=== PATIENT | female | born 1945 | race Two or more races ===

== ENCOUNTER 2019-08-26 | Inpatient (IN) | payer MEDICARE ==
[2019-08-26] VITALS (15 sets, daily range): BP systolic 101–153; BP diastolic 44–71
[~2019-08-26] VITALS: Ht 149.9 cm; Wt 76.9 kg
[~2019-08-26] MED LIST: CARV6.253 PO; GLIM4TAB7 PO; LEVO100T9 PO; METF-950 PO; METH1TAB32 PO; SIMV10TA98 PO
[2019-08-26] MEDS ORDERED: amiodarone/D5 360MG/200ML BAG 200 ML IV ONE ×2 (00:15→11:40)
[2019-08-26 00:42] LABS: BASOPHILS % (AUTO) 0.2 % (0-1); EOSINOPHILS % (AUTO) 0 % (0-6); HEMATOCRIT 34.9 % (35.0-45.0); HEMOGLOBIN 11.1 g/dl (12.0-16.0); LYMPHOCYTES # (AUTO) 0.8 X10'3 (1.1-4.8); LYMPHOCYTES % (AUTO) 7.9 % (21-51); MEAN CORPUSCULAR HEMOGLOBIN 28.5 PG (27.0-31.0); MEAN CORPUSCULAR HGB CONC 31.9 g/dL (33.0-36.5); MEAN CORPUSCULAR VOLUME 89.3 FL (78-98); MEAN PLATELET VOLUME 7.9 FL (7.4-10.4); MONOCYTES # (AUTO) 0.9 X10'3 (0-0.9); MONOCYTES % (AUTO) 8.9 % (2-12); NEUTROPHILS # (AUTO) 8.3 X10'3 (1.8-7.7); PLATELET COUNT 369 X10'3 (140-440); RED BLOOD COUNT 3.91 X10'6 (4.20-5.60); RED CELL DISTRIBUTION WIDTH 15.2 % (11.5-14.5)
[2019-08-26 01:01] LABS: ALANINE AMINOTRANSFERASE 729 U/L (12-78); ALBUMIN/GLOBULIN RATIO 0.8 (1.1-1.5); ALKALINE PHOSPHATASE 180 IU/L (46-116); ANION GAP 10 (8-16); BILIRUBIN,TOTAL 0.2 MG/DL (0.1-1.0); BLOOD UREA NITROGEN 31 MG/DL (7-18); BUN/CREATININE RATIO 21.2 (6.6-38.0); CALCIUM 8.9 MG/DL (8.5-10.1); CHLORIDE 105 MMOL/L (99-107); CREATININE 1.46 MG/DL (0.40-0.90); GLUCOSE 415 MG/DL (70-104); POTASSIUM 5.6 MMOL/L (3.5-5.1); SODIUM 136 MMOL/L (135-145); TOTAL CARBON DIOXIDE 21.2 MMOL/L (24-32); TOTAL PROTEIN 6.9 G/DL (6.4-8.2); eGFR 35 ML/MIN
[2019-08-26 01:02] LABS: ASPARTATE AMINO TRANSFERASE 1092 U/L (10-37)
--- NOTE | 2019-08-26 01:13 | NUR ---
ANNA Schmitz with patient now.
--- NOTE | 2019-08-26 01:17 | NUR ---
spoke to daughter and received info regarding collapse. According to daughter, they achieved Rosc after 10-15 min of cpr
--- NOTE | 2019-08-26 01:38 | NUR ---
field start I/O was DC'd due to discomfort of patient
[2019-08-26] MEDS ORDERED: amiodarone/D5 360MG/200ML BAG 200 ML IV SCH (01:57)
[2019-08-26] MEDS ORDERED: acetaminophen 650mg rectal suppository RC PRN (02:00)
[2019-08-26] MEDS ORDERED: acetaminophen 325mg tablet PO PRN ×2 (02:00)
[2019-08-26] MEDS ORDERED: ondansetron/PF 4mg/2ml inj IV PRN (02:00)
[2019-08-26] MEDS ORDERED: morphine 2 MG/ML inj. syringe IV PRN (02:00)
[2019-08-26] MEDS ORDERED: MESSAGE TO PHARMACY PO ONE (02:25)
[2019-08-26] MEDS ORDERED: dextrose 50%-water 50ml dispensing syringe IV PRN ×2 (02:25)
[2019-08-26] MEDS ORDERED: glucagon, human recombinant 1mg kit SUBCUT PRN (02:25)
[2019-08-26] MEDS ORDERED: dextrose ORAL solution 15 GM/59 ML bottle PO PRN ×2 (02:25)
[2019-08-26 02:28] LABS: PARTIAL THROMBOPLASTIN TIME 29 SECONDS (22-32)
[2019-08-26 02:37] LABS: CHOL/HDL RATIO 2.3 (0.00-4.99); CHOLESTEROL 129 MG/DL (0-200); HDL CHOLESTEROL 57 MG/DL (35-60); LDL CHOLESTEROL 47 MG/DL (50-100); MAGNESIUM 2.4 MG/DL (1.5-2.4); PHOSPHORUS 3.6 MG/DL (2.3-4.5); TRIGLYCERIDES 105 MG/DL (20-135)
--- NOTE | 2019-08-26 02:44 | NUR ---
Called report to CHARITO Neal in CICU
--- NOTE | 2019-08-26 02:50 | NUR ---
Received patient in room CICU 2009 transported from ER via gurney. I have received report from CHARITO Ann and had the opportunity to ask questions and assume patient care.
[2019-08-26] MEDS: morphine 4 MG/ML inj SYRINge IV PRN ×2 (02:58→07:46)
[2019-08-26] MEDS ORDERED: HYDROmorphone inj. 0.5 MG/0.5 ML DISP.SYRIN IV ONE (03:55)
[2019-08-26] MEDS: insulin Lispro (HumaLOG) vial - multi-dose SQ SCH ×3 (04:07→21:41)
[2019-08-26 05:10] LABS: CLARITY,URINE SLIGHTLY CLOUDY (Clear); COLOR,URINE YELLOW (Yellow); GLUCOSE, URINE 500 mg/dl (Neg); KETONES,URINE NEGATIVE (Neg); LEUKOCYTE ESTERASE ,URINE NEGATIVE (Neg); NITRITES, URINE NEGATIVE (Neg); OCCULT BLOOD,URINE TRACE-INTACT (Neg); PROTEIN,URINE 100 mg/dl (Neg); UROBILINOGEN,URINE 0.2 E.U/dL (0.2-1.0)
[2019-08-26 05:44] LABS: UA COLLECTION TYPE NON-SPECIFIED
[2019-08-26 05:47] LABS: RBC,URINE 0-2 /HPF (0-2)
[2019-08-26 05:48] LABS: BACTERIA,URINE FEW /HPF (Neg); CELLULAR CAST 0-4 /LPF (NEGATIVE); FINE GRANULAR CAST 0-3 /LPF (NEGATIVE); MUCUS STRANDS NONE SEEN /LPF (Neg); SQUAMOUS EPITHELIAL CELL,UR FEW /LPF (FEW)
[2019-08-26 07:05] LABS: ALANINE AMINOTRANSFERASE 653 U/L (12-78); ALBUMIN 3.2 G/DL (3.4-5.0); ALBUMIN/GLOBULIN RATIO 0.8 (1.1-1.5); ALKALINE PHOSPHATASE 173 IU/L (46-116); ANION GAP 8 (8-16); ASPARTATE AMINO TRANSFERASE 617 U/L (10-37); BILIRUBIN,TOTAL 0.2 MG/DL (0.1-1.0); BLOOD UREA NITROGEN 30 MG/DL (7-18); BUN/CREATININE RATIO 23.4 (6.6-38.0); CALCIUM 9.3 MG/DL (8.5-10.1); CHLORIDE 106 MMOL/L (99-107); CREATININE 1.28 MG/DL (0.40-0.90); GLUCOSE 275 MG/DL (70-104); POTASSIUM 5.5 MMOL/L (3.5-5.1); SODIUM 137 MMOL/L (135-145); TOTAL CARBON DIOXIDE 22.8 MMOL/L (24-32); TOTAL PROTEIN 7.2 G/DL (6.4-8.2); eGFR 41 ML/MIN
[2019-08-26] MEDS ORDERED: rocuronium 10mg/ml inj IV ONE ×2 (08:00→21:20)
[2019-08-26] MEDS: heparin, porcine 5000 units/ml vial SQ SCH ×2 (08:00→21:30)
[2019-08-26] MEDS ORDERED: sod chloride 0.9% 10ml flush syringe IV ONE (08:00)
[2019-08-26] MEDS: atorvastatin 10mg tablet PO SCH (08:00)
[2019-08-26] MEDS ORDERED: etomidate 2mg/ml inj. ONE (08:00)
[2019-08-26] MEDS ORDERED: ceFAZolin inj. 2,000 MG in dextrose 5%-water 50ml 50 ML IV ONE (08:05)
[2019-08-26] MEDS ORDERED: methylPREDNISolone sod succ 125mg/2ml vial IV ONE ×2 (08:05→16:00)
[2019-08-26] MEDS ORDERED: diphenhydrAMINE 50 mg/ml inj IV ONE ×2 (08:05→16:00)
[2019-08-26] MEDS: pantoprazole 40 MG vial IV SCH (08:43)
[2019-08-26] MEDS: carvedilol 6.25mg tablet PO SCH ×2 (08:43→21:31)
[2019-08-26] MEDS: docusate sod 100mg capsule PO SCH ×2 (08:43→21:30)
[2019-08-26] MEDS: MEROPENEM 1GM/NS 50ML IVPB 50 ML IV SCH ×2 (08:45→18:37)
[2019-08-26] MEDS ORDERED: BACDS PO (11:48)
[2019-08-26] MEDS ORDERED: METF-436 PO (11:50)
--- NOTE | 2019-08-26 12:15 | NUR ---
Increased freq pvc's, Dr Lugo aware, mg level ordered. Amiodarone infusing. No further orders
--- NOTE | 2019-08-26 15:00 | NUR ---
patient prepped for dental laboratory worker and for defibrillator. Given bed bath and harden cath care.
[2019-08-26 15:27] LABS: MAGNESIUM 2.1 MG/DL (1.5-2.4)
[2019-08-26] MEDS ORDERED: ceFAZolin 1000mg inj ONE (15:38)
[2019-08-26] MEDS ORDERED: LIDOcaine 1% W/epiNEPHrine 1:100,000 20ml vial ONE (15:39)
[2019-08-26] MEDS ORDERED: fentaNYL/PF 50MCG/1 ML 2ML syringe ONE (16:02)
[2019-08-26] MEDS ORDERED: midazolam 2 mg/2 ml injection ONE ×4 (16:02→19:41)
[2019-08-26] MEDS ORDERED: LIDOcaine 2% (20 mg/ml) 5ml cardiac syringe ONE (16:50)
[2019-08-26] MEDS ORDERED: LIDOcaine 2 gm/250ml D5W 250 ML IV ONE (16:55)
[2019-08-26] MEDS ORDERED: magnesium 1 GM/2 ML inj ONE ×2 (16:58→18:03)
[2019-08-26] MEDS ORDERED: LIDOcaine 1% (10mg/ml)w/preservative injection 20ml MDV ONE ×2 (17:12→17:13)
[2019-08-26] MEDS ORDERED: iohexol 350 MG/1 ML 200ml bottle ONE (17:14)
[2019-08-26] MEDS ORDERED: metoprolol tartrate 1mg/ml inj IV ONE (17:16)
[2019-08-26] MEDS ORDERED: iohexol 350 MG/ML 50ML vial IV ONE (17:38)
[2019-08-26] MEDS ORDERED: amiodarone 150mg/dext, iso-os 200 ML IV ONE (18:19)
--- NOTE | 2019-08-26 18:30 | NUR ---
Patient in room CICU 2009. I have received report from CHARITO Julio and had the opportunity to ask questions and assume patient care.
[2019-08-26] MEDS ORDERED: NORMAL SALINE IV ONE (19:30)
[2019-08-26] MEDS ORDERED: PROCAINAMIDE IV ONE (19:30)
[2019-08-26] MEDS ORDERED: albuterol 2.5 MG/3 ML nebule NEB PRN (19:40)
[2019-08-26] MEDS ORDERED: NORepinephrine 8mg/ 250ml NS 250 ML IV ONE (19:43)
[2019-08-26] MEDS ORDERED: MIDAZolam 5mg/ml 2ml vial IV ONE (19:45)
[2019-08-26] MEDS ORDERED: sulfamethoxazole/trimethoprim DS (800/160mg) tablet PO SCH (20:00)
[2019-08-26] MEDS ORDERED: carvedilol 6.25mg tablet PO SCH (20:00)
[2019-08-26 20:09] LABS: BASOPHILS % (AUTO) 0.1 % (0-1); EOSINOPHILS % (AUTO) 0 % (0-6); HEMATOCRIT 33.1 % (35.0-45.0); HEMOGLOBIN 10.4 g/dl (12.0-16.0); LYMPHOCYTES # (AUTO) 0.4 X10'3 (1.1-4.8); LYMPHOCYTES % (AUTO) 5.1 % (21-51); MEAN CORPUSCULAR HEMOGLOBIN 28.1 PG (27.0-31.0); MEAN CORPUSCULAR HGB CONC 31.3 g/dL (33.0-36.5); MEAN CORPUSCULAR VOLUME 89.6 FL (78-98); MEAN PLATELET VOLUME 7.7 FL (7.4-10.4); MONOCYTES # (AUTO) 0.1 X10'3 (0-0.9); MONOCYTES % (AUTO) 1.4 % (2-12); NEUTROPHILS % (AUTO) 93.4 % (42-75); PLATELET COUNT 350 X10'3 (140-440); RED CELL DISTRIBUTION WIDTH 16.1 % (11.5-14.5); WHITE BLOOD COUNT 8.5 X10'3 (4.5-11.0)
[2019-08-26 20:23] LABS: ALANINE AMINOTRANSFERASE 459 U/L (12-78); ALBUMIN 2.7 G/DL (3.4-5.0); ALBUMIN/GLOBULIN RATIO 0.7 (1.1-1.5); ALKALINE PHOSPHATASE 143 IU/L (46-116); ANION GAP 10 (8-16); ASPARTATE AMINO TRANSFERASE 217 U/L (10-37); BILIRUBIN,TOTAL 0.2 MG/DL (0.1-1.0); BLOOD UREA NITROGEN 31 MG/DL (7-18); BUN/CREATININE RATIO 23.5 (6.6-38.0); CALCIUM 8.1 MG/DL (8.5-10.1); CHLORIDE 102 MMOL/L (99-107); CREATININE 1.32 MG/DL (0.40-0.90); MAGNESIUM 3.3 MG/DL (1.5-2.4); PHOSPHORUS 4.1 MG/DL (2.3-4.5); POTASSIUM 5.8 MMOL/L (3.5-5.1); SODIUM 132 MMOL/L (135-145); TOTAL CARBON DIOXIDE 20.4 MMOL/L (24-32); TOTAL PROTEIN 6.5 G/DL (6.4-8.2); eGFR 39 ML/MIN
[2019-08-26 20:26] LABS: ABG HCO3 15.7 mmol/L (22.0-26.0); ABG PCO2 (T) 42.9 mmHg (32.0-45.0); ABG PO2 (T) 80.7 mmHg (75.0-100.0); ALLEN'S TEST POSITIVE; FCOHb 0.3 % (0.0-3.9); FMetHb 0.3 % (0.0-1.5); FO2Hb 93.4 % (94-97); PATIENT TEMPERATURE 37.2; PEEP 5 cm H2O; RESPIRATORY RATE 14 b/min; TIDAL VOLUME 400 mL; TOTAL HEMOGLOBIN 10.8 G/dl (12.0-16.0)
[2019-08-26 20:31] LABS: GLUCOSE 461 MG/DL (70-104)
[2019-08-26] MEDS: NORMAL SALINE IV SCH (20:52)
[2019-08-26] MEDS: PROCAINAMIDE IV SCH (20:52)
[2019-08-26] MEDS: midazolam 100mg in NS 100ml 100 ML IV PRN (20:59)
[2019-08-26] MEDS: FENTANYL-0.9 % NACL/PF 100 ML IV PRN (20:59)
[2019-08-26] MEDS ORDERED: metFORMIN 500mg tablet PO SCH (21:00)
--- NOTE | 2019-08-26 21:00 | NUR ---
Patient received from computer lab assistant and received report at bedside by computer lab assistant RN. Patient in and out of Vtach/Vfib without intervention from AICD. Patient shocked each time AICD was unresponsive. Patient was brought with amiodarone and lidocaine drips running. Dr Lugo and AICD rep called to beside. While MD was placing, quad lumen central line patient received multiple shocks and received a bolus of procainamide. Rep adjusted sensitivity to AICD, no further shocks were required past that point. MD intubated patient at 1940 by MD Lugo. Patient now on fentanyl at 35mcg, versed at 2mcg, procainamide at 1mg, Lidocaine at 3mg, amio at 0.5 mg and NS 100. vital signs are stable, patient is a paced at 60. Will continue to monitor and will update family on patient condition.
[2019-08-26] MEDS ORDERED: etomidate 2mg/ml inj. IV ONE (21:20)
[2019-08-26] MEDS: amiodarone/D5 360MG/200ML BAG 200 ML IV SCH (21:24)
[2019-08-26] MEDS: LIDOcaine 2 gm/250ml D5W 250 ML IV SCH (21:24)
[2019-08-26] MEDS: insulin glargine (Lantus) pen - multi-dose SQ SCH (21:41)
[2019-08-26] MEDS: normal saline 1000ml 1,000 ML IV SCH (21:43)
[2019-08-26] MEDS: lactobacillus rhamnosus 10,000 MMU CELLS/CAPSULE PO SCH (21:50)
[2019-08-26] MEDS: vancomycin/NS 1 GM ADD-VANTAGE 250 ML IV SCH (22:16)
[2019-08-26] MEDS: ipratropium/albuterol 3ml nebule NEB SCH (23:00)
--- NOTE | 2019-08-26 23:05 | NUR ---
Daughter at bedside, updated on patient condition and all questions answered by Denise Domingo NP.
[2019-08-27] VITALS (24 sets, daily range): BP systolic 83–140; BP diastolic 48–87
[2019-08-27] MEDS: insulin Lispro (HumaLOG) vial - multi-dose SQ SCH ×3 (02:14→14:37)
[2019-08-27] MEDS: LIDOcaine 2 gm/250ml D5W 250 ML IV SCH ×2 (02:21→14:02)
[2019-08-27] MEDS: normal saline 1000ml 1,000 ML IV SCH ×2 (02:23→14:02)
[2019-08-27 02:48] LABS: BASOPHILS % (AUTO) 0.2 % (0-1); EOSINOPHILS % (AUTO) 0 % (0-6); HEMATOCRIT 30.5 % (35.0-45.0); HEMOGLOBIN 9.7 g/dl (12.0-16.0); LYMPHOCYTES # (AUTO) 0.9 X10'3 (1.1-4.8); LYMPHOCYTES % (AUTO) 10.2 % (21-51); MEAN CORPUSCULAR HGB CONC 31.8 g/dL (33.0-36.5); MEAN CORPUSCULAR VOLUME 87.8 FL (78-98); MONOCYTES # (AUTO) 0.4 X10'3 (0-0.9); MONOCYTES % (AUTO) 4.3 % (2-12); NEUTROPHILS # (AUTO) 7.6 X10'3 (1.8-7.7); NEUTROPHILS % (AUTO) 85.3 % (42-75); PLATELET COUNT 325 X10'3 (140-440); RED BLOOD COUNT 3.47 X10'6 (4.20-5.60); RED CELL DISTRIBUTION WIDTH 15.3 % (11.5-14.5)
[2019-08-27 03:13] LABS: ALANINE AMINOTRANSFERASE 380 U/L (12-78); ALBUMIN 2.5 G/DL (3.4-5.0); ALBUMIN/GLOBULIN RATIO 0.7 (1.1-1.5); ALKALINE PHOSPHATASE 126 IU/L (46-116); ANION GAP 7 (8-16); ASPARTATE AMINO TRANSFERASE 130 U/L (10-37); BILIRUBIN,TOTAL 0.2 MG/DL (0.1-1.0); BLOOD UREA NITROGEN 28 MG/DL (7-18); BUN/CREATININE RATIO 22.8 (6.6-38.0); CALCIUM 8.1 MG/DL (8.5-10.1); CHLORIDE 106 MMOL/L (99-107); CREATININE 1.23 MG/DL (0.40-0.90); GLUCOSE 337 MG/DL (70-104); MAGNESIUM 2.8 MG/DL (1.5-2.4); PHOSPHORUS 2.1 MG/DL (2.3-4.5); POTASSIUM 5.2 MMOL/L (3.5-5.1); SODIUM 135 MMOL/L (135-145); TOTAL PROTEIN 5.9 G/DL (6.4-8.2); eGFR 43 ML/MIN
[2019-08-27] MEDS: ipratropium/albuterol 3ml nebule NEB SCH ×5 (03:17→21:27)
[2019-08-27 03:41] LABS: ABG BASE EXCESS -8.2 mmol/L (-2.0-2.0); ABG HCO3 16.1 mmol/L (22.0-26.0); ABG OXYGEN SATURATION 94.3 % (94-97); ABG PCO2 (T) 28.2 mmHg (32.0-45.0); ABG PO2 (T) 68.3 mmHg (75.0-100.0); ALLEN'S TEST POSITIVE; FCOHb 0.3 % (0.0-3.9); FMetHb 0.4 % (0.0-1.5); FO2Hb 93.6 % (94-97); PATIENT TEMPERATURE 36.3; RESPIRATORY RATE 18 b/min; TIDAL VOLUME 400 mL; TOTAL HEMOGLOBIN 10.5 G/dl (12.0-16.0)
[2019-08-27] MEDS: amiodarone/D5 360MG/200ML BAG 200 ML IV SCH ×4 (06:10→21:11)
--- NOTE | 2019-08-27 06:32 | NUR ---
Problems reprioritized. Patient report given, questions answered & plan of care reviewed with CHARITO Alford.
--- NOTE | 2019-08-27 06:45 | NUR ---
Patient in room CICU 2009. I have received report from Rocío MCNEILL and had the opportunity to ask questions and assume patient care.
[2019-08-27] MEDS: heparin, porcine 5000 units/ml vial SQ SCH ×2 (07:43→20:31)
[2019-08-27] MEDS: pantoprazole 40 MG vial IV SCH (07:43)
[2019-08-27] MEDS ORDERED: metFORMIN 500mg tablet PO SCH (08:00)
--- NOTE | 2019-08-27 08:00 | NUR ---
pacemaker rep was present from about 0700 to 0800. he reports that underlying rhythm is sinus eliana at a rate of about 44bmp with a 1st degree HB. he also reports that so far the pacemaker has not performed any shocks. he did not change any settings at this time.
[2019-08-27] MEDS: lactobacillus rhamnosus 10,000 MMU CELLS/CAPSULE PO SCH ×2 (08:04→20:30)
[2019-08-27] MEDS: atorvastatin 10mg tablet PO SCH (08:04)
[2019-08-27] MEDS: levoTHYROXINE 100mcg tablet PO SCH (08:05)
[2019-08-27] MEDS: docusate sod 100mg capsule PO SCH ×2 (08:05→20:32)
[2019-08-27] MEDS: methenamine hippurate 1gm tablet PO SCH (08:28)
[2019-08-27] MEDS: MEROPENEM 1GM/NS 50ML IVPB 50 ML IV SCH ×3 (09:03→15:52)
[2019-08-27] MEDS ORDERED: carVEDilol 3.125mg tablet PO ONE (09:40)
--- NOTE | 2019-08-27 10:00 | NUR ---
sedation off at this time.
[2019-08-27] MEDS ORDERED: ipratropium/albuterol 3ml nebule NEB PRN (10:55)
[2019-08-27] MEDS ORDERED: racepinephrine 11.25mg/0.5ml nebule NEB PRN (10:55)
--- NOTE | 2019-08-27 11:10 | NUR ---
extubated pt at [address] John. pt tolerated well. on 4L NC at this time and saturations holding.
--- NOTE | 2019-08-27 12:15 | NUR ---
at 1210 pt had an episode of vtach lasting a total of 32 seconds. pt became disoriented during event but did not lose consciousness completely. at the time of the event, she had amio at 0.5, procainamide at 1, and lidocaine at 2. during the event, the pacemaker seemed to attempt to pace around 10 seconds into the event, but did not successfully end the event. pt appears to have spontaneously came out of the vtach at the 32 second lola, at which time the pacemaker seems to have resumed pacing. following the event, lidocaine increased from 2 to 3. MD will be notified regarding the event.
--- NOTE | 2019-08-27 12:30 | NUR ---
Dr John was notified at this time regarding pt V tach event which occurred at 2009. He requested at Dr Mancia be notified. will attempt to contact Dr Mancia.
--- NOTE | 2019-08-27 12:40 | NUR ---
i called Dr Adames office at this time and left a message. continue to monitor.
--- NOTE | 2019-08-27 12:59 | NUR ---
Dr Mancia called back at this time. he requested a picture of an EKG be sent to his cell phone so he can evaluate.
--- NOTE | 2019-08-27 18:17 | NUR ---
Problems reprioritized. Patient report given, questions answered & plan of care reviewed with Deepa MCNEILL.
--- NOTE | 2019-08-27 18:24 | NUR ---
Patient in room CICU 2009. I have received report from dwight palencia and had the opportunity to ask questions and assume patient care.
[2019-08-27] MEDS: carVEDilol 3.125mg tablet PO SCH (20:00)
[2019-08-27] MEDS: mineral oil/petrolatum ophthal oint EACHEYE SCH (20:00)
[2019-08-27] MEDS: insulin glargine (Lantus) pen - multi-dose SQ SCH (20:38)
[2019-08-27] MEDS: vancomycin/NS 1 GM ADD-VANTAGE 250 ML IV SCH (21:05)
--- NOTE | 2019-08-27 21:34 | NUR ---
I began to give a Duoneb but the patient went into Vtach, so I stopped the breathing treatment.
[2019-08-27] MEDS ORDERED: ipratropium/albuterol 3ml nebule NEB SCH (23:45)
[2019-08-28] VITALS (24 sets, daily range): BP systolic 95–152; BP diastolic 52–75
[2019-08-28] MEDS: MEROPENEM 1GM/NS 50ML IVPB 50 ML IV SCH ×2 (00:21→08:35)
[2019-08-28] MEDS ORDERED: midazolam 100mg in NS 100ml 100 ML IV PRN (00:57)
[2019-08-28] MEDS ORDERED: FENTANYL-0.9 % NACL/PF 100 ML IV PRN (00:57)
[2019-08-28] MEDS ORDERED: fentaNYL/PF 50MCG/1 ML 2ML syringe ONE (01:00)
[2019-08-28] MEDS ORDERED: midazolam 2 mg/2 ml injection ONE (01:00)
[2019-08-28] MEDS: FENTANYL-0.9 % NACL/PF 100 ML IV PRN ×2 (01:39→19:28)
[2019-08-28] MEDS: midazolam 100mg in NS 100ml 100 ML IV PRN (01:40)
[2019-08-28] MEDS ORDERED: rocuronium 10mg/ml inj IV ONE (01:45)
[2019-08-28 01:48] LABS: ALANINE AMINOTRANSFERASE 275 U/L (12-78); ALBUMIN 2.6 G/DL (3.4-5.0); ALBUMIN/GLOBULIN RATIO 0.7 (1.1-1.5); ALKALINE PHOSPHATASE 121 IU/L (46-116); ANION GAP 9 (8-16); ASPARTATE AMINO TRANSFERASE 84 U/L (10-37); BILIRUBIN,TOTAL 0.2 MG/DL (0.1-1.0); BLOOD UREA NITROGEN 38 MG/DL (7-18); BUN/CREATININE RATIO 24.5 (6.6-38.0); CALCIUM 7.9 MG/DL (8.5-10.1); CHLORIDE 106 MMOL/L (99-107); CREATININE 1.55 MG/DL (0.40-0.90); GLUCOSE 221 MG/DL (70-104); MAGNESIUM 2.4 MG/DL (1.5-2.4); PHOSPHORUS 2.8 MG/DL (2.3-4.5); POTASSIUM 5.6 MMOL/L (3.5-5.1); SODIUM 136 MMOL/L (135-145); TOTAL CARBON DIOXIDE 21.5 MMOL/L (24-32); TOTAL PROTEIN 6.1 G/DL (6.4-8.2); eGFR 33 ML/MIN
[2019-08-28 01:51] LABS: BASOPHILS % (AUTO) 0.1 % (0-1); EOSINOPHILS % (AUTO) 0 % (0-6); LYMPHOCYTES # (AUTO) 1.4 X10'3 (1.1-4.8); LYMPHOCYTES % (AUTO) 11.8 % (21-51); MEAN CORPUSCULAR HEMOGLOBIN 27.9 PG (27.0-31.0); MEAN CORPUSCULAR HGB CONC 31.2 g/dL (33.0-36.5); MEAN CORPUSCULAR VOLUME 89.6 FL (78-98); MONOCYTES # (AUTO) 1.2 X10'3 (0-0.9); MONOCYTES % (AUTO) 10.3 % (2-12); NEUTROPHILS # (AUTO) 9.3 X10'3 (1.8-7.7); NEUTROPHILS % (AUTO) 77.8 % (42-75); PLATELET COUNT 363 X10'3 (140-440); RED BLOOD COUNT 3.57 X10'6 (4.20-5.60); RED CELL DISTRIBUTION WIDTH 15.6 % (11.5-14.5)
[2019-08-28 01:59] LABS: ABG BASE EXCESS -11.4 mmol/L (-2.0-2.0); ABG HCO3 14.8 mmol/L (22.0-26.0); ABG OXYGEN SATURATION 90.4 % (94-97); ABG PCO2 (T) 33.2 mmHg (32.0-45.0); ABG PO2 (T) 61.2 mmHg (75.0-100.0); ALLEN'S TEST POSITIVE; FCOHb 0.3 % (0.0-3.9); FMetHb 0.3 % (0.0-1.5); FO2Hb 89.9 % (94-97); PATIENT TEMPERATURE 36.4; PEEP 5 cm H2O; RESPIRATORY RATE 18 b/min; TIDAL VOLUME 400 mL; TOTAL HEMOGLOBIN 10.7 G/dl (12.0-16.0)
[2019-08-28] MEDS ORDERED: lactulose 20gm/30ml cup PO PRN (02:00)
--- NOTE | 2019-08-28 02:00 | NUR ---
0045 pt pressed call light and asked for water. water provided. 0051 pt went into Vtach. ACID did not shock her or pace her out of it. Pt shocked with 200J. called code code blue. 0104 pt intubated, 75mg rocuronium, 100 mg of fentanyl, and 2 mg versed administered iv. et tube size 8 22 at the teeth, after cxr tube pulled back to 20 at the teeth. labs drawn. 0200 ACID being intergrated at bedside.
[2019-08-28] MEDS ORDERED: ipratropium 0.5 MG/2.5ML nebule IH PRN (02:05)
[2019-08-28 02:11] LABS: PARTIAL THROMBOPLASTIN TIME 29 SECONDS (22-32)
[2019-08-28] MEDS: mineral oil/petrolatum ophthal oint EACHEYE SCH ×4 (02:21→21:32)
[2019-08-28] MEDS: LIDOcaine 2 gm/250ml D5W 250 ML IV SCH ×2 (03:00→14:28)
[2019-08-28] MEDS: NORMAL SALINE IV SCH (03:01)
[2019-08-28] MEDS: PROCAINAMIDE IV SCH (03:01)
[2019-08-28] MEDS: normal saline 1000ml 1,000 ML IV SCH ×2 (03:01→13:48)
[2019-08-28] MEDS: amiodarone/D5 360MG/200ML BAG 200 ML IV SCH ×3 (04:15→14:28)
--- NOTE | 2019-08-28 06:30 | NUR ---
Patient in room CICU 2009. I have received report from Deepa MCNEILL and had the opportunity to ask questions and assume patient care.
--- NOTE | 2019-08-28 07:19 | NUR ---
Dr Mancia called at this time. he asked about pt events since 0100 this morning, and what drips were running. he gave orders to start 200mg Amiodarone PO QID, and would like the amiodarone drip to continue as well. once amiodarone on board, he would like to lidocaine drip to be weaned off as possible because he is worried about toxicity due to length of time on drip.
[2019-08-28] MEDS: heparin, porcine 5000 units/ml vial SQ SCH ×2 (08:34→21:31)
[2019-08-28] MEDS: atorvastatin 10mg tablet PO SCH (08:34)
[2019-08-28] MEDS: docusate sod 100mg capsule PO SCH ×2 (08:34→21:30)
[2019-08-28] MEDS: methenamine hippurate 1gm tablet PO SCH (08:34)
[2019-08-28] MEDS: carVEDilol 3.125mg tablet PO SCH ×2 (08:34→21:30)
[2019-08-28] MEDS: lactobacillus rhamnosus 10,000 MMU CELLS/CAPSULE PO SCH ×2 (08:35→21:30)
[2019-08-28] MEDS: pantoprazole 40 MG vial IV SCH (08:35)
[2019-08-28] MEDS: levoTHYROXINE 100mcg tablet PO SCH (08:35)
[2019-08-28] MEDS: amiodarone 200mg tablet PO SCH ×4 (08:35→21:30)
[2019-08-28] MEDS: insulin Lispro (HumaLOG) vial - multi-dose SQ SCH (08:50)
--- NOTE | 2019-08-28 12:28 | NUR ---
TF Consult: Pt intubated s/p respiratory arrest following AICD not firing w/ hx CAD, T2DM, CABG, HTN, and hypothyroidism. OGTF to start today per MD; MAP 75 this AM. EN recs below given pt needs; will monitor for EN tolerance. 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 DX ISHMAEL w/ CKD III and acute respiratory failure per MD. 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 Noted last A1C 8.8 March this year; RD d/w RN regarding new A1C this admit if MD agreeable. Will continue to monitor. Rec: 1. OGTF per MD using Vital High Protein at 70ml/hr goal; to provide 1680ml fluid, 1680 kcals, 1411ml free water, and 147g protein. 2. additional water flush per compliance nurse; Na 136 3. PALB Q /; daily wts 4. routine bowel care 5. monitor for EN tolerance 6. upon extubation; advance diet as medically indicated to carb controlled/heart healthy Addendum: 08/28/19 at [address] Amended: Links added.
[2019-08-28 13:40] LABS: PREALBUMIN 16.1 MG/DL (19-36)
[2019-08-28] MEDS: meropenem inj 1 GM in normal saline 100ml IV soln 100 ML IV SCH (16:15)
--- NOTE | 2019-08-28 18:30 | NUR ---
Problems reprioritized. Patient report given, questions answered & plan of care reviewed with Ernst MCNEILL.
--- NOTE | 2019-08-28 20:53 | NUR ---
weaning off procainamide per Dr Mancia, decreased IV fluids to 50/hr per Huan ESCALANTE
[2019-08-28] MEDS: insulin regular, human U-100 3ml vial - multi-dose SQ SCH (21:57)
[2019-08-28] MEDS: insulin glargine (Lantus) pen - multi-dose SQ SCH (21:59)
[2019-08-29] VITALS (24 sets, daily range): BP systolic 91–161; BP diastolic 46–75
[2019-08-29] MEDS: midazolam 100mg in NS 100ml 100 ML IV PRN (01:45)
[2019-08-29] MEDS: amiodarone/D5 360MG/200ML BAG 200 ML IV SCH ×4 (01:53→13:48)
[2019-08-29] MEDS: normal saline 1000ml 1,000 ML IV SCH ×2 (01:54→09:35)
[2019-08-29] MEDS ORDERED: mineral oil/petrolatum ophthal oint EACHEYE SCH (02:00)
[2019-08-29] MEDS: mineral oil/petrolatum ophthal oint EACHEYE SCH ×2 (02:03→08:00)
[2019-08-29 02:51] LABS: BASOPHILS % (AUTO) 0.4 % (0-1); EOSINOPHILS # (AUTO) 0.2 X10'3 (0-0.9); EOSINOPHILS % (AUTO) 2.1 % (0-6); HEMATOCRIT 27.5 % (35.0-45.0); HEMOGLOBIN 8.8 g/dl (12.0-16.0); LYMPHOCYTES # (AUTO) 1.3 X10'3 (1.1-4.8); LYMPHOCYTES % (AUTO) 16.3 % (21-51); MEAN CORPUSCULAR HGB CONC 31.9 g/dL (33.0-36.5); MEAN CORPUSCULAR VOLUME 87.7 FL (78-98); MEAN PLATELET VOLUME 8.1 FL (7.4-10.4); MONOCYTES # (AUTO) 0.8 X10'3 (0-0.9); MONOCYTES % (AUTO) 9.9 % (2-12); NEUTROPHILS # (AUTO) 5.6 X10'3 (1.8-7.7); NEUTROPHILS % (AUTO) 71.3 % (42-75); PLATELET COUNT 249 X10'3 (140-440); RED BLOOD COUNT 3.14 X10'6 (4.20-5.60); RED CELL DISTRIBUTION WIDTH 15.4 % (11.5-14.5); WHITE BLOOD COUNT 7.8 X10'3 (4.5-11.0)
[2019-08-29] MEDS: insulin regular, human U-100 3ml vial - multi-dose SQ SCH ×3 (02:57→13:56)
[2019-08-29 03:13] LABS: ALANINE AMINOTRANSFERASE 157 U/L (12-78); ALBUMIN 1.9 G/DL (3.4-5.0); ALBUMIN/GLOBULIN RATIO 0.7 (1.1-1.5); ALKALINE PHOSPHATASE 94 IU/L (46-116); ANION GAP 8 (8-16); ASPARTATE AMINO TRANSFERASE 35 U/L (10-37); BILIRUBIN,TOTAL 0.3 MG/DL (0.1-1.0); BLOOD UREA NITROGEN 30 MG/DL (7-18); BUN/CREATININE RATIO 29.1 (6.6-38.0); CALCIUM 7.5 MG/DL (8.5-10.1); CHLORIDE 111 MMOL/L (99-107); CREATININE 1.03 MG/DL (0.40-0.90); GLUCOSE 143 MG/DL (70-104); MAGNESIUM 1.9 MG/DL (1.5-2.4); PHOSPHORUS 1.6 MG/DL (2.3-4.5); POTASSIUM 4.4 MMOL/L (3.5-5.1); SODIUM 139 MMOL/L (135-145); TOTAL CARBON DIOXIDE 19.6 MMOL/L (24-32); TOTAL PROTEIN 4.8 G/DL (6.4-8.2); eGFR 52 ML/MIN
[2019-08-29 04:26] LABS: ABG BASE EXCESS -8.2 mmol/L (-2.0-2.0); ABG PCO2 (T) 34.4 mmHg (32.0-45.0); ABG PO2 (T) 103.4 mmHg (75.0-100.0); ALLEN'S TEST POSITIVE; FCOHb 0.3 % (0.0-3.9); FMetHb 0.1 % (0.0-1.5); FO2Hb 96.6 % (94-97); PATIENT TEMPERATURE 37.7; PEEP 5 cm H2O; RESPIRATORY RATE 18 b/min; TIDAL VOLUME 400 mL; TOTAL HEMOGLOBIN 10.1 G/dl (12.0-16.0)
[2019-08-29] MEDS: heparin, porcine 5000 units/ml vial SQ SCH ×2 (07:56→20:39)
[2019-08-29] MEDS: meropenem inj 1 GM in normal saline 100ml IV soln 100 ML IV SCH ×3 (07:57)
[2019-08-29] MEDS: docusate sod 100mg capsule PO SCH ×2 (08:00→20:38)
[2019-08-29] MEDS: carVEDilol 3.125mg tablet PO SCH ×3 (08:00→20:38)
[2019-08-29] MEDS: pantoprazole 40 MG vial IV SCH (08:02)
[2019-08-29] MEDS: amiodarone 200mg tablet PO SCH ×4 (08:24→20:39)
[2019-08-29] MEDS: atorvastatin 10mg tablet PO SCH (08:24)
[2019-08-29] MEDS: lactobacillus rhamnosus 10,000 MMU CELLS/CAPSULE PO SCH ×2 (08:24→20:39)
[2019-08-29] MEDS: methenamine hippurate 1gm tablet PO SCH (08:24)
[2019-08-29] MEDS: levoTHYROXINE 100mcg tablet PO SCH (08:24)
[2019-08-29] MEDS: CefTRIAXone 2gm/D5W 50ml 50 ML IV SCH (11:30)
--- NOTE | 2019-08-29 11:49 | NUR ---
DM education needed, A1c 9, will need written DM education handout with verbal review prior to discharge. Addendum: 08/29/19 at [address] Amended: Links added.
[2019-08-29] MEDS ORDERED: ipratropium/albuterol 3ml nebule NEB PRN (12:10)
[2019-08-29] MEDS ORDERED: racepinephrine 11.25mg/0.5ml nebule NEB PRN (12:10)
[2019-08-29] MEDS: ipratropium/albuterol 3ml nebule NEB SCH ×2 (15:11→20:05)
[2019-08-29] MEDS: HYDROcodone/acetaminophen 5mg/325mg tablet PO PRN (18:03)
--- NOTE | 2019-08-29 18:30 | NUR ---
Patient in room CICU 2009. I have received report from CHARITO Greene and had the opportunity to ask questions and assume patient care. Patient is awake and alert in bed, fatigued. AICD site with dressing clean dry and intact, some bruising noted to tissue around AICD. Right groin puncture site, dressing clean, dry and intact.
--- NOTE | 2019-08-29 18:34 | NUR ---
Problems reprioritized. Patient report given, questions answered & plan of care reviewed with Sherri MCNEILL.
[2019-08-29] MEDS: furosemide 20 MG/2 ML vial IV SCH (20:37)
[2019-08-29] MEDS: insulin glargine (Lantus) pen - multi-dose SQ SCH (20:54)
[2019-08-29] MEDS: magnesium 2GM in 50ml NS 50 ML IV PRN (21:00)
[2019-08-29] MEDS ORDERED: VANCOMYCIN LEVEL IV ONE (21:30)
[2019-08-30] VITALS (24 sets, daily range): BP systolic 90–163; BP diastolic 47–73
[2019-08-30 02:50] LABS: BASOPHILS # (AUTO) 0.1 X10'3 (0-0.2); BASOPHILS % (AUTO) 0.6 % (0-1); EOSINOPHILS # (AUTO) 0.3 X10'3 (0-0.9); EOSINOPHILS % (AUTO) 3.7 % (0-6); HEMATOCRIT 31.1 % (35.0-45.0); LYMPHOCYTES # (AUTO) 1.2 X10'3 (1.1-4.8); LYMPHOCYTES % (AUTO) 13.2 % (21-51); MEAN CORPUSCULAR HEMOGLOBIN 28.1 PG (27.0-31.0); MEAN CORPUSCULAR HGB CONC 32.2 g/dL (33.0-36.5); MEAN PLATELET VOLUME 7.9 FL (7.4-10.4); MONOCYTES # (AUTO) 0.9 X10'3 (0-0.9); MONOCYTES % (AUTO) 9.5 % (2-12); NEUTROPHILS # (AUTO) 6.7 X10'3 (1.8-7.7); PLATELET COUNT 281 X10'3 (140-440); RED BLOOD COUNT 3.58 X10'6 (4.20-5.60); RED CELL DISTRIBUTION WIDTH 15.5 % (11.5-14.5); WHITE BLOOD COUNT 9.2 X10'3 (4.5-11.0)
--- NOTE | 2019-08-30 03:00 | NUR ---
Patient assisted in repositioning throughout the night. Patients harden catheter flushed with every 2 hours with 20 ml normal saline secondary to mucous in urine clogging catheter. Patient encouraged to deep breathe and cough. Assisted patient with flutter valve and incentive spirometry. She has a occasional productive cough of thick, yellow, sputum.
[2019-08-30 03:04] LABS: ALANINE AMINOTRANSFERASE 93 U/L (12-78); ALBUMIN 1.5 G/DL (3.4-5.0); ALBUMIN/GLOBULIN RATIO 0.5 (1.1-1.5); ALKALINE PHOSPHATASE 73 IU/L (46-116); ANION GAP 11 (8-16); ASPARTATE AMINO TRANSFERASE 29 U/L (10-37); BILIRUBIN,TOTAL 0.2 MG/DL (0.1-1.0); BLOOD UREA NITROGEN 19 MG/DL (7-18); BUN/CREATININE RATIO 33.3 (6.6-38.0); CALCIUM 6.2 MG/DL (8.5-10.1); CHLORIDE 116 MMOL/L (99-107); CREATININE 0.57 MG/DL (0.40-0.90); GLUCOSE 62 MG/DL (70-104); MAGNESIUM 1.6 MG/DL (1.5-2.4); PHOSPHORUS 1.5 MG/DL (2.3-4.5); SODIUM 146 MMOL/L (135-145); TOTAL CARBON DIOXIDE 18.6 MMOL/L (24-32); TOTAL PROTEIN 4.6 G/DL (6.4-8.2); eGFR > 90 ML/MIN
[2019-08-30 03:09] LABS: POTASSIUM 2.4 MMOL/L (3.5-5.1)
[2019-08-30] MEDS: ipratropium/albuterol 3ml nebule NEB SCH ×4 (03:21→20:40)
[2019-08-30] MEDS: potassium Cl 20mEq/100mL bag 100 ML IV PRN ×2 (03:21→04:25)
--- NOTE | 2019-08-30 06:29 | NUR ---
Problems reprioritized. Patient report given, questions answered & plan of care reviewed with CHARITO Howard.
[2019-08-30] MEDS: atorvastatin 10mg tablet PO SCH (08:00)
[2019-08-30] MEDS: pantoprazole 40 MG vial IV SCH (08:38)
[2019-08-30] MEDS: amiodarone 200mg tablet PO SCH ×4 (08:38→20:52)
[2019-08-30] MEDS: methenamine hippurate 1gm tablet PO SCH (08:38)
[2019-08-30] MEDS: furosemide 20 MG/2 ML vial IV SCH ×2 (08:39→20:53)
[2019-08-30] MEDS: levoTHYROXINE 100mcg tablet PO SCH (08:39)
[2019-08-30] MEDS: carVEDilol 3.125mg tablet PO SCH ×2 (08:39→20:53)
[2019-08-30] MEDS: docusate sod 100mg capsule PO SCH ×2 (08:39→20:54)
[2019-08-30] MEDS: heparin, porcine 5000 units/ml vial SQ SCH ×2 (08:40→20:55)
[2019-08-30] MEDS: CefTRIAXone 2gm/D5W 50ml 50 ML IV SCH (08:40)
[2019-08-30] MEDS: lactobacillus rhamnosus 10,000 MMU CELLS/CAPSULE PO SCH ×2 (08:41→20:52)
[2019-08-30] MEDS: HYDROcodone/acetaminophen 5mg/325mg tablet PO PRN ×3 (08:42→20:56)
[2019-08-30] MEDS: POTASSIUM BICARB 20meq eff tab 20 MEQ TABLET.EFF PO SCH ×2 (11:34→20:54)
[2019-08-30] MEDS: magnesium 4gm in 100ml NS 100 ML IV PRN (11:49)
--- NOTE | 2019-08-30 18:20 | NUR ---
Patient in room CICU 2009. I have received report from CHARITO Howard and had the opportunity to ask questions and assume patient care. Patient seated in chair at bedside eating dinner, patient is without complaints at this time.
--- NOTE | 2019-08-30 18:40 | NUR ---
Patient report given, questions answered & plan of care reviewed with Sherri MCNEILL.
[2019-08-30] MEDS ORDERED: lactobacillus rhamnosus 10,000 MMU CELLS/CAPSULE PO SCH (20:00)
[2019-08-30] MEDS: insulin glargine (Lantus) pen - multi-dose SQ SCH (21:00)
[2019-08-31] VITALS (15 sets, daily range): BP systolic 110–163; BP diastolic 54–76
[2019-08-31] MEDS: HYDROcodone/acetaminophen 5mg/325mg tablet PO PRN ×4 (03:48→23:27)
[2019-08-31 03:55] LABS: BASOPHILS # (AUTO) 0.1 X10'3 (0-0.2); BASOPHILS % (AUTO) 0.6 % (0-1); EOSINOPHILS # (AUTO) 0.4 X10'3 (0-0.9); EOSINOPHILS % (AUTO) 4.9 % (0-6); HEMATOCRIT 32.7 % (35.0-45.0); HEMOGLOBIN 10.6 g/dl (12.0-16.0); LYMPHOCYTES # (AUTO) 1.1 X10'3 (1.1-4.8); LYMPHOCYTES % (AUTO) 12.4 % (21-51); MEAN CORPUSCULAR HGB CONC 32.3 g/dL (33.0-36.5); MEAN CORPUSCULAR VOLUME 86.6 FL (78-98); MEAN PLATELET VOLUME 7.8 FL (7.4-10.4); MONOCYTES # (AUTO) 0.9 X10'3 (0-0.9); MONOCYTES % (AUTO) 9.8 % (2-12); NEUTROPHILS # (AUTO) 6.5 X10'3 (1.8-7.7); NEUTROPHILS % (AUTO) 72.3 % (42-75); PLATELET COUNT 324 X10'3 (140-440); RED BLOOD COUNT 3.78 X10'6 (4.20-5.60); RED CELL DISTRIBUTION WIDTH 15.4 % (11.5-14.5)
[2019-08-31] MEDS: ipratropium/albuterol 3ml nebule NEB SCH ×4 (03:57→20:10)
[2019-08-31 04:05] LABS: ALANINE AMINOTRANSFERASE 87 U/L (12-78); ALBUMIN/GLOBULIN RATIO 0.6 (1.1-1.5); ALKALINE PHOSPHATASE 92 IU/L (46-116); ANION GAP 7 (8-16); ASPARTATE AMINO TRANSFERASE 22 U/L (10-37); BILIRUBIN,TOTAL 0.3 MG/DL (0.1-1.0); BLOOD UREA NITROGEN 17 MG/DL (7-18); BUN/CREATININE RATIO 19.5 (6.6-38.0); CHLORIDE 106 MMOL/L (99-107); CREATININE 0.87 MG/DL (0.40-0.90); GLUCOSE 188 MG/DL (70-104); MAGNESIUM 2.7 MG/DL (1.5-2.4); PHOSPHORUS 2.1 MG/DL (2.3-4.5); POTASSIUM 4.4 MMOL/L (3.5-5.1); SODIUM 139 MMOL/L (135-145); TOTAL CARBON DIOXIDE 25.9 MMOL/L (24-32); TOTAL PROTEIN 5.5 G/DL (6.4-8.2); eGFR 64 ML/MIN
--- NOTE | 2019-08-31 06:38 | NUR ---
Problems reprioritized. Patient report given, questions answered & plan of care reviewed with CHARITO Julio.
[2019-08-31 06:40] LABS: PLATELET ESTIMATE NORMAL; TOTAL CELLS COUNTED 100
[2019-08-31] MEDS: POTASSIUM BICARB 20meq eff tab 20 MEQ TABLET.EFF PO SCH (08:00)
[2019-08-31] MEDS: methenamine hippurate 1gm tablet PO SCH (08:00)
[2019-08-31] MEDS: pantoprazole 40mg Tablet.DR PO SCH (09:11)
[2019-08-31] MEDS: CefTRIAXone 2gm/D5W 50ml 50 ML IV SCH (09:11)
[2019-08-31] MEDS: amiodarone 200mg tablet PO SCH ×4 (09:12→20:49)
[2019-08-31] MEDS: atorvastatin 10mg tablet PO SCH (09:12)
[2019-08-31] MEDS: carVEDilol 3.125mg tablet PO SCH ×2 (09:12→20:49)
[2019-08-31] MEDS: docusate sod 100mg capsule PO SCH ×2 (09:12→20:49)
[2019-08-31] MEDS: furosemide 20 MG/2 ML vial IV SCH ×2 (09:12→20:49)
[2019-08-31] MEDS: lactobacillus rhamnosus 10,000 MMU CELLS/CAPSULE PO SCH ×2 (09:12→20:49)
[2019-08-31] MEDS: spironolactone 25 MG tablet PO SCH (09:12)
[2019-08-31] MEDS: levoTHYROXINE 100mcg tablet PO SCH (09:12)
[2019-08-31] MEDS: heparin, porcine 5000 units/ml vial SQ SCH ×2 (09:13→20:50)
[2019-08-31] MEDS ORDERED: glucagon, human recombinant 1mg kit SUBCUT PRN (09:25)
[2019-08-31] MEDS ORDERED: dextrose 50%-water 50ml dispensing syringe IV PRN ×2 (09:25)
[2019-08-31] MEDS ORDERED: dextrose ORAL solution 15 GM/59 ML bottle PO PRN ×2 (09:25)
[2019-08-31] MEDS: insulin Lispro (HumaLOG) vial - multi-dose SQ SCH ×3 (09:31→19:15)
[2019-08-31] MEDS: losartan 25mg tablet PO SCH (14:35)
--- NOTE | 2019-08-31 16:30 | NUR ---
Patient in room CICU 2009. I have received report from talha marte and had the opportunity to ask questions and assume patient care.
--- NOTE | 2019-08-31 16:35 | NUR ---
received pt into room 307,oriented to surroundings,denies pain, moniter shows 1-2 seconds of bijemny,occ pair of pvcs,resolves to 100% a-paced, assessment complete
--- NOTE | 2019-08-31 16:58 | NUR ---
Patient to ACCE unit with belongings including cell phone, wheel inspector, tablet, cards and pictures and some books. Report given to CHARITO Luis.
--- NOTE | 2019-08-31 17:00 | NUR ---
reviewed previous assessment,found no changes pt comfortable in recliner chair,cont to moniter closely
--- NOTE | 2019-08-31 18:00 | NUR ---
Patient in room MED 317. I have received report from Janelle MCNEILL and had the opportunity to ask questions and assume patient care.
--- NOTE | 2019-08-31 18:30 | NUR ---
Problems reprioritized. Patient report given, questions answered & plan of care reviewed with CHARITO Porter.
[2019-08-31] MEDS: insulin glargine (Lantus) pen - multi-dose SQ SCH (21:49)
--- NOTE | 2019-09-01 01:28 | NUR ---
[place] reassessment not done on prior shift. Cleaning up task list.
[2019-09-01] MEDS: ipratropium/albuterol 3ml nebule NEB SCH ×4 (03:05→19:45)
[2019-09-01 05:33] LABS: BASOPHILS % (AUTO) 0.5 % (0-1); EOSINOPHILS # (AUTO) 0.6 X10'3 (0-0.9); EOSINOPHILS % (AUTO) 6.3 % (0-6); HEMATOCRIT 31.2 % (35.0-45.0); HEMOGLOBIN 10.4 g/dl (12.0-16.0); LYMPHOCYTES # (AUTO) 1.7 X10'3 (1.1-4.8); LYMPHOCYTES % (AUTO) 19.2 % (21-51); MEAN CORPUSCULAR HEMOGLOBIN 28.7 PG (27.0-31.0); MEAN CORPUSCULAR HGB CONC 33.2 g/dL (33.0-36.5); MEAN CORPUSCULAR VOLUME 86.5 FL (78-98); MEAN PLATELET VOLUME 7.4 FL (7.4-10.4); MONOCYTES # (AUTO) 0.8 X10'3 (0-0.9); MONOCYTES % (AUTO) 9.1 % (2-12); NEUTROPHILS # (AUTO) 5.9 X10'3 (1.8-7.7); NEUTROPHILS % (AUTO) 64.9 % (42-75); PLATELET COUNT 358 X10'3 (140-440); RED BLOOD COUNT 3.61 X10'6 (4.20-5.60); RED CELL DISTRIBUTION WIDTH 15.2 % (11.5-14.5); WHITE BLOOD COUNT 9.1 X10'3 (4.5-11.0)
[2019-09-01 05:47] LABS: ALANINE AMINOTRANSFERASE 68 U/L (12-78); ALBUMIN 2.2 G/DL (3.4-5.0); ALBUMIN/GLOBULIN RATIO 0.7 (1.1-1.5); ALKALINE PHOSPHATASE 84 IU/L (46-116); ANION GAP 5 (8-16); ASPARTATE AMINO TRANSFERASE 18 U/L (10-37); BILIRUBIN,TOTAL 0.3 MG/DL (0.1-1.0); BLOOD UREA NITROGEN 12 MG/DL (7-18); BUN/CREATININE RATIO 14.5 (6.6-38.0); CALCIUM 8.3 MG/DL (8.5-10.1); CHLORIDE 106 MMOL/L (99-107); CREATININE 0.83 MG/DL (0.40-0.90); GLUCOSE 99 MG/DL (70-104); MAGNESIUM 1.8 MG/DL (1.5-2.4); POTASSIUM 3.5 MMOL/L (3.5-5.1); SODIUM 141 MMOL/L (135-145); TOTAL CARBON DIOXIDE 30.2 MMOL/L (24-32); TOTAL PROTEIN 5.5 G/DL (6.4-8.2); eGFR 67 ML/MIN
[2019-09-01 06:00] VITALS: BP 140/58
--- NOTE | 2019-09-01 06:08 | NUR ---
Patient in room MED 317. I have received report from CHARITO OLIVO and had the opportunity to ask questions and assume patient care.
--- NOTE | 2019-09-01 06:29 | NUR ---
Problems reprioritized. Patient report given, questions answered & plan of care reviewed with Janelle MCNEILL.
[2019-09-01 06:31] LABS: PLATELET ESTIMATE NORMAL; TOTAL CELLS COUNTED 100
[2019-09-01 06:32] LABS: ANISOCYTOSIS 1+; ELLIPTOCYTES 1+; POLYCHROMASIA FEW
[2019-09-01] MEDS: levoTHYROXINE 100mcg tablet PO SCH (07:14)
[2019-09-01] MEDS: pantoprazole 40mg Tablet.DR PO SCH (07:14)
[2019-09-01] MEDS: HYDROcodone/acetaminophen 5mg/325mg tablet PO PRN ×2 (07:18→14:15)
[2019-09-01] MEDS: magnesium 2GM in 50ml NS 50 ML IV PRN ×2 (07:18→13:43)
[2019-09-01] MEDS: atorvastatin 10mg tablet PO SCH (08:00)
[2019-09-01] MEDS: CefTRIAXone 2gm/D5W 50ml 50 ML IV SCH (08:00)
[2019-09-01] MEDS: methenamine hippurate 1gm tablet PO SCH (08:00)
[2019-09-01] MEDS: lactobacillus rhamnosus 10,000 MMU CELLS/CAPSULE PO SCH ×2 (09:43→20:16)
[2019-09-01] MEDS: spironolactone 25 MG tablet PO SCH (09:43)
[2019-09-01] MEDS: carVEDilol 3.125mg tablet PO SCH ×2 (09:43→20:16)
[2019-09-01] MEDS: losartan 25mg tablet PO SCH (09:44)
[2019-09-01] MEDS: amiodarone 200mg tablet PO SCH ×4 (09:44→20:16)
[2019-09-01] MEDS: potassium Cl 20 mEq SR tablet PO PRN ×2 (09:44→13:42)
[2019-09-01] MEDS: docusate sod 100mg capsule PO SCH ×2 (09:44→20:16)
[2019-09-01] MEDS: furosemide 20 MG/2 ML vial IV SCH (09:46)
[2019-09-01] MEDS: heparin, porcine 5000 units/ml vial SQ SCH ×2 (09:47→20:17)
[2019-09-01 10:00] VITALS: BP 142/58
[2019-09-01 14:00] VITALS: BP 122/57
[2019-09-01] MEDS: insulin Lispro (HumaLOG) vial - multi-dose SQ SCH ×2 (14:03→20:39)
--- NOTE | 2019-09-01 15:32 | NUR ---
DM education needed, A1c 9, met at bedside and given written DM education handout with verbal review. Reports ate her first meal today, about 50% PO. Appetite is small but improving, usually appetite good at home. Receiving colace for bowel care. No c/o. Will follow. Rec: 1. Continue carb controlled diet 2. Continue bowel care 3. weight per rx Addendum: 09/01/19 at [address] Amended: Links added. Addendum: 09/01/19 at [address] CORRECTION: DM education: A1c 9, met at bedside and given written DM education handout with verbal review.
[2019-09-01 18:00] VITALS: BP 116/52
--- NOTE | 2019-09-01 18:00 | NUR ---
Problems reprioritized. Patient report given, questions answered & plan of care reviewed with talha Patten.
[2019-09-01] MEDS: POTASSIUM BICARB 20meq eff tab 20 MEQ TABLET.EFF PO PRN (18:01)
[2019-09-01] MEDS: HYDROcodone/acetaminophen 10/325mg tab PO PRN (20:19)
[2019-09-01] MEDS: insulin glargine (Lantus) pen - multi-dose SQ SCH (20:41)
[2019-09-01 22:00] VITALS: BP 132/66
[2019-09-02] MEDS ORDERED: potassium bicarbonate/cit acid 25mEq tablet.effervescent PO SCH
--- NOTE | 2019-09-02 02:31 | NUR ---
Patient refused the 0200 vitals. She stated being so tired and want to rest. Will recheck her vitals at 0600. Current vitals are stable.
[2019-09-02] MEDS: ipratropium/albuterol 3ml nebule NEB SCH ×4 (03:01→20:20)
[2019-09-02 06:00] VITALS: BP 130/63
[2019-09-02 06:11] LABS: BASOPHILS % (AUTO) 0.6 % (0-1); EOSINOPHILS # (AUTO) 0.7 X10'3 (0-0.9); EOSINOPHILS % (AUTO) 7.6 % (0-6); HEMOGLOBIN 9.7 g/dl (12.0-16.0); LYMPHOCYTES # (AUTO) 1.8 X10'3 (1.1-4.8); LYMPHOCYTES % (AUTO) 21.1 % (21-51); MEAN CORPUSCULAR HGB CONC 32.2 g/dL (33.0-36.5); MEAN CORPUSCULAR VOLUME 86.9 FL (78-98); MEAN PLATELET VOLUME 7.5 FL (7.4-10.4); MONOCYTES # (AUTO) 0.8 X10'3 (0-0.9); MONOCYTES % (AUTO) 9.1 % (2-12); NEUTROPHILS # (AUTO) 5.4 X10'3 (1.8-7.7); NEUTROPHILS % (AUTO) 61.6 % (42-75); PLATELET COUNT 325 X10'3 (140-440); RED BLOOD COUNT 3.45 X10'6 (4.20-5.60); WHITE BLOOD COUNT 8.7 X10'3 (4.5-11.0)
--- NOTE | 2019-09-02 06:23 | NUR ---
The right IJ removed at 0530. The tip of the IJ was intact. Patient tolerated well. Alert, oriented x4. Not on any distress at this time
--- NOTE | 2019-09-02 06:24 | NUR ---
Problems reprioritized. Patient report given Leslie, questions answered & plan of care reviewed with .
[2019-09-02 06:38] LABS: ALANINE AMINOTRANSFERASE 55 U/L (12-78); ALBUMIN 2.2 G/DL (3.4-5.0); ALBUMIN/GLOBULIN RATIO 0.7 (1.1-1.5); ALKALINE PHOSPHATASE 78 IU/L (46-116); ANION GAP 4 (8-16); ASPARTATE AMINO TRANSFERASE 21 U/L (10-37); BILIRUBIN,TOTAL 0.3 MG/DL (0.1-1.0); BLOOD UREA NITROGEN 11 MG/DL (7-18); BUN/CREATININE RATIO 12.5 (6.6-38.0); CALCIUM 8.1 MG/DL (8.5-10.1); CHLORIDE 104 MMOL/L (99-107); CREATININE 0.88 MG/DL (0.40-0.90); GLUCOSE 166 MG/DL (70-104); PHOSPHORUS 2.5 MG/DL (2.3-4.5); POTASSIUM 4.3 MMOL/L (3.5-5.1); SODIUM 137 MMOL/L (135-145); TOTAL CARBON DIOXIDE 29.2 MMOL/L (24-32); TOTAL PROTEIN 5.3 G/DL (6.4-8.2); eGFR 63 ML/MIN
--- NOTE | 2019-09-02 06:50 | NUR ---
Patient in room MED 317. I have received report from talha holder and had the opportunity to ask questions and assume patient care.
[2019-09-02] MEDS: losartan 25mg tablet PO SCH (07:40)
[2019-09-02] MEDS: levoTHYROXINE 100mcg tablet PO SCH (07:40)
[2019-09-02] MEDS: spironolactone 25 MG tablet PO SCH (07:40)
[2019-09-02] MEDS: docusate sod 100mg capsule PO SCH ×2 (07:40→21:05)
[2019-09-02] MEDS: furosemide 20MG tablet PO SCH (07:40)
[2019-09-02] MEDS: atorvastatin 10mg tablet PO SCH (07:40)
[2019-09-02] MEDS: lactobacillus rhamnosus 10,000 MMU CELLS/CAPSULE PO SCH ×2 (07:40→21:05)
[2019-09-02] MEDS: pantoprazole 40mg Tablet.DR PO SCH (07:40)
[2019-09-02] MEDS: amiodarone 200mg tablet PO SCH ×3 (07:41→21:05)
[2019-09-02] MEDS: carvedilol 6.25mg tablet PO SCH ×2 (07:41→21:06)
[2019-09-02] MEDS: methenamine hippurate 1gm tablet PO SCH (08:00)
[2019-09-02] MEDS: heparin, porcine 5000 units/ml vial SQ SCH ×2 (08:06→21:06)
[2019-09-02 10:00] VITALS: BP 116/57
[2019-09-02] MEDS: CefTRIAXone inj 2,000 MG in normal saline 100ml IV soln 100 ML IV SCH (10:06)
[2019-09-02] MEDS: insulin Lispro (HumaLOG) vial - multi-dose SQ SCH ×2 (10:09→13:49)
[2019-09-02] MEDS: HYDROcodone/acetaminophen 5mg/325mg tablet PO PRN (13:51)
[2019-09-02 14:00] VITALS: BP 111/45
--- NOTE | 2019-09-02 14:03 | NUR ---
Pt amb with PT in hallways,sao2 on room air 86-88% after 100 ft. saor at rest,sitting inchair=92%
[2019-09-02 18:00] VITALS: BP 153/82
--- NOTE | 2019-09-02 18:02 | NUR ---
appt made with ' pacer clinic to remove sutures at pacer/aicd site on September 08 @1 pm
--- NOTE | 2019-09-02 18:35 | NUR ---
Patient in room MED 317. I have received report from Leslie, and had the opportunity to ask questions and assume patient care.
--- NOTE | 2019-09-02 19:14 | NUR ---
patient eat very little 15g of carb. Does not want the dinner blood sugar coverage. Will recheck her Blood Sugar at 2100.
[2019-09-02] MEDS: POTASSIUM BICARB 20meq eff tab 20 MEQ TABLET.EFF PO PRN (21:05)
[2019-09-02] MEDS: HYDROcodone/acetaminophen 10/325mg tab PO PRN (21:21)
[2019-09-02] MEDS: insulin glargine (Lantus) pen - multi-dose SQ SCH (21:38)
[2019-09-02 22:00] VITALS: BP 142/50
[2019-09-03 02:00] VITALS: BP 149/60
[2019-09-03] MEDS: ipratropium/albuterol 3ml nebule NEB SCH ×2 (02:31→08:41)
[2019-09-03 05:14] LABS: ANGIOTESIN-CONVERTING ENZYME 58 U/L (14-82); ANTINUCLEAR ANTIBODIES Negative (Negative)
[2019-09-03 06:12] LABS: BASOPHILS # (AUTO) 0.1 X10'3 (0-0.2); BASOPHILS % (AUTO) 0.7 % (0-1); EOSINOPHILS # (AUTO) 0.8 X10'3 (0-0.9); EOSINOPHILS % (AUTO) 8.1 % (0-6); HEMATOCRIT 32.2 % (35.0-45.0); HEMOGLOBIN 10.5 g/dl (12.0-16.0); LYMPHOCYTES # (AUTO) 2.2 X10'3 (1.1-4.8); LYMPHOCYTES % (AUTO) 21.7 % (21-51); MEAN CORPUSCULAR HEMOGLOBIN 28.8 PG (27.0-31.0); MEAN CORPUSCULAR HGB CONC 32.7 g/dL (33.0-36.5); MEAN CORPUSCULAR VOLUME 88.1 FL (78-98); MEAN PLATELET VOLUME 7.3 FL (7.4-10.4); MONOCYTES # (AUTO) 0.9 X10'3 (0-0.9); MONOCYTES % (AUTO) 8.8 % (2-12); NEUTROPHILS % (AUTO) 60.7 % (42-75); PLATELET COUNT 340 X10'3 (140-440); RED BLOOD COUNT 3.65 X10'6 (4.20-5.60); RED CELL DISTRIBUTION WIDTH 15.4 % (11.5-14.5); WHITE BLOOD COUNT 9.9 X10'3 (4.5-11.0)
--- NOTE | 2019-09-03 06:35 | NUR ---
Problems reprioritized. Patient report given Josue, questions answered & plan of care reviewed with .
[2019-09-03 06:40] LABS: ALANINE AMINOTRANSFERASE 58 U/L (12-78); ALBUMIN 2.6 G/DL (3.4-5.0); ALBUMIN/GLOBULIN RATIO 0.8 (1.1-1.5); ALKALINE PHOSPHATASE 86 IU/L (46-116); ANION GAP 5 (8-16); ASPARTATE AMINO TRANSFERASE 32 U/L (10-37); BILIRUBIN,TOTAL 0.3 MG/DL (0.1-1.0); BLOOD UREA NITROGEN 9 MG/DL (7-18); BUN/CREATININE RATIO 9.8 (6.6-38.0); CALCIUM 9.1 MG/DL (8.5-10.1); CHLORIDE 103 MMOL/L (99-107); CREATININE 0.92 MG/DL (0.40-0.90); GLUCOSE 148 MG/DL (70-104); MAGNESIUM 1.8 MG/DL (1.5-2.4); PHOSPHORUS 3.7 MG/DL (2.3-4.5); POTASSIUM 4.7 MMOL/L (3.5-5.1); SODIUM 138 MMOL/L (135-145); TOTAL CARBON DIOXIDE 29.7 MMOL/L (24-32); eGFR 60 ML/MIN
--- NOTE | 2019-09-03 06:48 | NUR ---
Patient in room MED 317. I have received report from Sandor MCNEILL and had the opportunity to ask questions and assume patient care.
[2019-09-03 07:00] VITALS: BP 138/62
[2019-09-03] MEDS: carvedilol 6.25mg tablet PO SCH (08:08)
[2019-09-03] MEDS: spironolactone 25 MG tablet PO SCH (08:08)
[2019-09-03] MEDS: amiodarone 200mg tablet PO SCH ×2 (08:08→13:47)
[2019-09-03] MEDS: pantoprazole 40mg Tablet.DR PO SCH (08:08)
[2019-09-03] MEDS: atorvastatin 10mg tablet PO SCH (08:08)
[2019-09-03] MEDS: furosemide 20MG tablet PO SCH (08:09)
[2019-09-03] MEDS: methenamine hippurate 1gm tablet PO SCH (08:09)
[2019-09-03] MEDS: heparin, porcine 5000 units/ml vial SQ SCH (08:10)
[2019-09-03] MEDS: CefTRIAXone inj 2,000 MG in normal saline 100ml IV soln 100 ML IV SCH (08:13)
[2019-09-03] MEDS: levoTHYROXINE 100mcg tablet PO SCH (08:29)
[2019-09-03] MEDS: docusate sod 100mg capsule PO SCH (08:29)
[2019-09-03] MEDS: losartan 25mg tablet PO SCH (08:29)
[2019-09-03] MEDS: lactobacillus rhamnosus 10,000 MMU CELLS/CAPSULE PO SCH (08:29)
[2019-09-03] MEDS: HYDROcodone/acetaminophen 5mg/325mg tablet PO PRN (08:39)
[2019-09-03] MEDS: magnesium 4gm in 100ml NS 100 ML IV PRN (08:53)
[2019-09-03] MEDS: insulin Lispro (HumaLOG) vial - multi-dose SQ SCH ×2 (09:24→14:02)
[2019-09-03 11:00] VITALS: BP 147/75
--- NOTE | 2019-09-03 12:00 | NUR ---
O2 Sat at rest on room air: 90% If below 89%: Recovery O2 Sat at rest on ___LPM:___%:___% via (mask/nasal cannula, etc..) No further documentation is necessary. If O2 Sat did not drop below 89% on room air,ambulate patient on room air. O2 Sat while ambulating on room air: 86% Recovery O2 Sat while ambulating on 2LPM: 92% No further documentation is necessary. If patient does not drop below 89% while ambulating, he/she does not qualify for home O2.
[2019-09-03 14:00] VITALS: BP 136/77
[2019-09-03] MEDS ORDERED: CEFD300C3 PO (14:59)
[2019-09-03] MEDS ORDERED: SPIR25TA PO (14:59)
[2019-09-03] MEDS ORDERED: AMIO200T61 PO (14:59)
[2019-09-03] MEDS ORDERED: FURO20TA4 PO (14:59)
[2019-09-03] MEDS ORDERED: LOSA25TA41 PO (14:59)
[2019-09-03] MEDS ORDERED: IPRA4AER IH (15:02)
--- NOTE | 2019-09-03 16:00 | NUR ---
Pt received d/c orders from . IV d/shawn and no s/s of complications. All instructions given to patient and she stated understanding. She used her new walker to get to private vehicle escorted with RN. All belongings accounted for.
[2019-09-04 05:15] LABS: CYTOMEGALOVIRUS AB, IGM <30.0 AU/mL (0.0-29.9)
[2019-09-04 13:13] LABS: ATYPICAL PANCA <1:20 titer (Neg:<1:20); CYTOPLASMIC (C-ANCA) <1:20 titer (Neg:<1:20); PERINUCLEAR (P-ANCA) <1:20 titer (Neg:<1:20)
== END 2019-09-03 16:05 | disposition home or self-care (01) | DRG 853 ==
LOC: ER 00:01 → ED HOLD 01:57 → UNDOADMIN 01:57 → CICU 2S 03:06 → ED HOLD 03:06 → CICU 2S 08-31 16:35 → MED 3N 08-31 16:35
PROVIDERS: ADMIT Internal Medicine Critical Care Medicine; ATTEND Internal Medicine Critical Care Medicine
PROC: 0JH608Z Insertion of Defibrillator Generator into Chest Subcutaneous Tissue and Fascia, Open Approach (ICD-10-PCS; principal; 2019-08-26)
PROC: 02HK3KZ Insertion of Defibrillator Lead into Right Ventricle, Percutaneous Approach (ICD-10-PCS; 2019-08-26)
PROC: 02H63KZ Insertion of Defibrillator Lead into Right Atrium, Percutaneous Approach (ICD-10-PCS; 2019-08-26)
PROC: 02HV33Z Insertion of Infusion Device into Superior Vena Cava, Percutaneous Approach (ICD-10-PCS; 2019-08-26)
PROC: B548ZZA Ultrasonography of Superior Vena Cava, Guidance (ICD-10-PCS; 2019-08-26)
PROC: 5A1935Z Respiratory Ventilation, Less than 24 Consecutive Hours (ICD-10-PCS; 2019-08-26)
PROC: 0BH17EZ Insertion of Endotracheal Airway into Trachea, Via Natural or Artificial Opening (ICD-10-PCS; 2019-08-26)
PROC: 4A023N7 Measurement of Cardiac Sampling and Pressure, Left Heart, Percutaneous Approach (ICD-10-PCS; 2019-08-26)
PROC: B2111ZZ Fluoroscopy of Multiple Coronary Arteries using Low Osmolar Contrast (ICD-10-PCS; 2019-08-26)
PROC: B3101ZZ Fluoroscopy of Thoracic Aorta using Low Osmolar Contrast (ICD-10-PCS; 2019-08-26)
PROC: 5A1945Z Respiratory Ventilation, 24-96 Consecutive Hours (ICD-10-PCS; 2019-08-28)
PROC: 0BH17EZ Insertion of Endotracheal Airway into Trachea, Via Natural or Artificial Opening (ICD-10-PCS; 2019-08-28)
PROC: 5A12012 Performance of Cardiac Output, Single, Manual (ICD-10-PCS; 2019-08-28)
DX: A41.59 Other Gram-negative sepsis (principal); I49.01 Ventricular fibrillation; J96.00 Acute respiratory failure, unspecified whether with hypoxia or hypercapnia; I46.2 Cardiac arrest due to underlying cardiac condition; I50.22 Chronic systolic (congestive) heart failure; N39.0 Urinary tract infection, site not specified; N17.9 Acute kidney failure, unspecified; I47.2 Ventricular tachycardia; I13.0 Hypertensive heart and chronic kidney disease with heart failure and stage 1 through stage 4 chronic kidney disease, or unspecified chronic kidney disease; I25.5 Ischemic cardiomyopathy; B96.1 Klebsiella pneumoniae [K. pneumoniae] as the cause of diseases classified elsewhere; E03.9 Hypothyroidism, unspecified; E11.51 Type 2 diabetes mellitus with diabetic peripheral angiopathy without gangrene; E11.65 Type 2 diabetes mellitus with hyperglycemia; E78.5 Hyperlipidemia, unspecified; E87.5 Hyperkalemia; E11.22 Type 2 diabetes mellitus with diabetic chronic kidney disease; N18.9 Chronic kidney disease, unspecified; I25.10 Atherosclerotic heart disease of native coronary artery without angina pectoris; R74.0 Nonspecific elevation of levels of transaminase and lactic acid dehydrogenase [LDH]; M81.0 Age-related osteoporosis without current pathological fracture; Z79.84 Long term (current) use of oral hypoglycemic drugs; Z85.51 Personal history of malignant neoplasm of bladder; Z87.440 Personal history of urinary (tract) infections; Z90.710 Acquired absence of both cervix and uterus; Z91.041 Radiographic dye allergy status; Z95.1 Presence of aortocoronary bypass graft; Z03.818 Encounter for observation for suspected exposure to other biological agents ruled out; Z79.899 Other long term (current) drug therapy; Z90.49 Acquired absence of other specified parts of digestive tract
CPT/HCPCS: 33249; 36415; 36600; 71045; 71250; 80053; 80061; 81001; 82164; 82570; 82803; 82948; 83036; 83605; 83735; 83880; 84100; 84132; 84134; 84145; 84300; 84443; 84484; 85018; 85025; 85610; 85651; 85730; 86038; 86256; 86603; 86618; 86645; 86658; 86747; 87040; 87070; 87077; 87081; 87088; 87186; 87635; 92508; 92616; 92950; 93005; 93306; 93308; 93455; 93567; 94002; 94003; 94640; 94667; 94668; 94760; 96365; 97110; 97116; 97161; 97530; 97535; 99152; 99153; 99285; A4565; A4620; A6258; C1721; C1760; C1769; C1895; C9113; G0378; J0690; J0696; J1170; J1200; J1644; J1815; J1940; J2001; J2185; J2250; J2270; J2405; J2690; J2930; J3010; J3370; J3475; J3480; J3490; J7030; J7050; Q9967

== ENCOUNTER 2020-05-25 16:52 | Emergency (ER) | payer MEDICARE ==
[~2020-05-25] VITALS: Ht 142.2 cm; Wt 65.9 kg
[~2020-05-25 16:52] MED LIST changes: +AMIO400T5 PO; +ASCO100T12 PO; +CARV3.12 PO; -CARV6.253 PO; +LACT1CAP75 PO; +LOSA25TA41 PO; +METF-436 PO; -METH1TAB32 PO; +UBID300C PO
[2020-05-25 17:46] LABS: BASOPHILS # (AUTO) 0.1 X10'3 (0-0.2); BASOPHILS % (AUTO) 0.8 % (0-1); EOSINOPHILS # (AUTO) 0.6 X10'3 (0-0.9); EOSINOPHILS % (AUTO) 9.1 % (0-6); HEMATOCRIT 41.1 % (35.0-45.0); HEMOGLOBIN 12.8 g/dl (12.0-16.0); LYMPHOCYTES # (AUTO) 1.4 X10'3 (1.1-4.8); LYMPHOCYTES % (AUTO) 20.3 % (21-51); MEAN CORPUSCULAR HEMOGLOBIN 27.3 PG (27.0-31.0); MEAN CORPUSCULAR HGB CONC 31.2 g/dL (33.0-36.5); MEAN CORPUSCULAR VOLUME 87.3 FL (78-98); MEAN PLATELET VOLUME 8.3 FL (7.4-10.4); MONOCYTES # (AUTO) 0.6 X10'3 (0-0.9); MONOCYTES % (AUTO) 7.9 % (2-12); NEUTROPHILS # (AUTO) 4.4 X10'3 (1.8-7.7); NEUTROPHILS % (AUTO) 61.9 % (42-75); PLATELET COUNT 266 X10'3 (140-440); RED CELL DISTRIBUTION WIDTH 20.3 % (11.5-14.5); WHITE BLOOD COUNT 7.1 X10'3 (4.5-11.0)
[2020-05-25 17:56] LABS: ALANINE AMINOTRANSFERASE 25 U/L (12-78); ALBUMIN 3.8 G/DL (3.4-5.0); ALKALINE PHOSPHATASE 85 IU/L (46-116); ANION GAP 10 (8-16); ASPARTATE AMINO TRANSFERASE 17 U/L (10-37); BILIRUBIN,TOTAL 0.3 MG/DL (0.1-1.0); BLOOD UREA NITROGEN 39 MG/DL (7-18); BUN/CREATININE RATIO 36.4 (6.6-38.0); CHLORIDE 99 MMOL/L (99-107); CREATININE 1.07 MG/DL (0.40-0.90); GLUCOSE 310 MG/DL (70-104); SODIUM 135 MMOL/L (135-145); TOTAL CARBON DIOXIDE 26.1 MMOL/L (24-32); TOTAL PROTEIN 7.7 G/DL (6.4-8.2); eGFR 50 ML/MIN
[2020-05-25] MEDS ORDERED: ALBU18HF2 INH (19:33)
[2020-05-25 19:41] VITALS: BP 168/80
[2020-05-25 20:31] LABS: PLATELET ESTIMATE NORMAL
[2020-05-25 20:32] LABS: ANISOCYTOSIS 2+
[2020-05-25 20:33] LABS: SPHEROCYTES FEW
== END 2020-05-25 19:43 | disposition home or self-care (01) ==
LOC: MERGE 16:53 → ER 16:53
DX: R06.02 Shortness of breath (principal); J45.901 Unspecified asthma with (acute) exacerbation; R07.89 Other chest pain; I25.10 Atherosclerotic heart disease of native coronary artery without angina pectoris; I25.2 Old myocardial infarction; E11.9 Type 2 diabetes mellitus without complications; Z85.9 Personal history of malignant neoplasm, unspecified; Z95.0 Presence of cardiac pacemaker; Z98.890 Other specified postprocedural states; Z88.8 Allergy status to other drugs, medicaments and biological substances; Z79.899 Other long term (current) drug therapy
CPT/HCPCS: 36415; 71045; 80053; 84484; 85008; 85025; 93005; 99285